=== PATIENT | female | born 1945 | race Caucasian/White ===

== ENCOUNTER 2016-10-26 09:39 | Observation (INO) | payer OTHER ==
[~2016-10-26] VITALS: Ht 167.6 cm; Wt 72.9 kg
[~2016-10-26 09:39] MED LIST: ASPIR 8181 M1 PO; ATIVAN0.5 MG PO; Benadryl PO; LIPITOR20 MG PO; METAMUCIL FIBE1 EACH PO; MULTIPLE VITAM1 EAC1 PO; PROTONIX40 MG PO; STOOL SOFTENER100 MG PO; predniSONE PO
[2016-10-26 10:15] LABS: HEMATOCRIT 35.1 % (36.0-46.0); MCH 30.9 PG (29.0-34.0); MCHC 32.8 G/DL (30.0-36.0); MCV 94.4 FL (83-99); PLATELET COUNT 170 K/uL (156-360); RBC DIS.WIDTH-CV 13.3 % (11.8-14.6); RBC DIS.WIDTH-SD 43.8 % (39-53); RED BLOOD COUNT 3.72 M/uL (3.80-5.20); WHITE BLOOD COUNT 4.9 K/uL (4.1-10.2)
[2016-10-26 10:22] LABS: CHLORIDE 109 mEq/L (99-109); POTASSIUM 3.8 mEq/L (3.7-5.4); SODIUM 141 mEq/L (136-147)
[2016-10-26 10:24] LABS: GLUCOSE 110 mg/dL (70-99)
[2016-10-26 10:25] LABS: ANION GAP 10 MEQ/L (2-14)
[2016-10-26 10:28] LABS: GFR ESTIMATE (CALCULATED) > 59 mL/min/
[2016-10-26 10:29] LABS: UREA NITROGEN (BUN) 20 mg/dL (9-23)
[2016-10-26] MEDS ORDERED: ASPIR 8181 M1 PO (11:24)
[2016-10-26] MEDS ORDERED: NOLVADEX20 MG PO (11:25)
[2016-10-26] MEDS ORDERED: EFUDEX 5% CREAM25 GM TP (11:26)
[2016-10-26 11:27] LABS: ADD MIUA? YES; BILIRUBIN NEGATIVE; BLOOD NEGATIVE; COLOR YELLOW ((YELLOW)); GLUCOSE (STRIP) NEGATIVE; KETONES NEGATIVE; LEUKOCYTES TRACE; NITRITE NEGATIVE; PROTEIN (STRIP) NEGATIVE; SPECIFIC GRAVITY 1.009 (1.000-1.030); UROBILINOGEN 0.2 MG/DL (0.2-1.0)
[2016-10-26] MEDS ORDERED: AZITHROMYCIN250 MG PO (11:27)
[2016-10-26 11:37] LABS: BACTERIA 1+; CASTS NONE SEEN /LPF; CRYSTALS NONE SEEN; EPITHELIAL CELLS 1+; MUCUS NONE SEEN; RED BLOOD CELLS NONE SEEN /HPF (0-5); UCUL ADDED? NO; WHITE BLOOD CELLS 0-5 /HPF (0-5)
[2016-10-26 13:52] VITALS: BP 141/72
[2016-10-26 16:45] VITALS: BP 110/53
[2016-10-26 21:15] VITALS: BP 126/61
[2016-10-27 00:35] VITALS: BP 109/56
[2016-10-27 05:03] VITALS: BP 109/56
[2016-10-27 05:12] VITALS: BP 114/70
[2016-10-27 07:15] LABS: HDL CHOLESTEROL 51 MG/DL (Desirable>=50); LDL CHOLESTEROL 53 mg/dL (Desirable<100); NON-HDL CHOLESTEROL 69 mg/dL (Desirable<160); TOTAL CHOLESTEROL 120 mg/dL (Desirable<200); TRIGLYCERIDES 82 MG/DL (Normal: <150)
[2016-10-27 08:00] VITALS: BP 113/54
[2016-10-27] MEDS ORDERED: ASPIR 8181 M1 PO (10:22)
[2016-10-28 07:05] LABS: Estimated Average Glucose 108 mg/dL (70-123); HEMOGLOBIN A1c (GLYCOHEMOGLOB) 5.4 % HGB (Below 5.7)
== END 2016-10-27 12:11 | disposition home or self-care (01) ==
LOC: EME 09:39 → EDOF 11:23 → 5WEST 13:39
PROVIDERS: Emergency Medicine; Hospitalist
DX: G45.9 Transient cerebral ischemic attack, unspecified (principal); K21.9 Gastro-esophageal reflux disease without esophagitis; E78.5 Hyperlipidemia, unspecified; Z85.3 Personal history of malignant neoplasm of breast; Z79.810 Long term (current) use of selective estrogen receptor modulators (SERMs); Z79.82 Long term (current) use of aspirin; Z82.3 Family history of stroke; Z83.3 Family history of diabetes mellitus; Z82.49 Family history of ischemic heart disease and other diseases of the circulatory system; Z83.2 Family history of diseases of the blood and blood-forming organs and certain disorders involving the immune mechanism; Z88.0 Allergy status to penicillin; Z88.1 Allergy status to other antibiotic agents; Z88.7 Allergy status to serum and vaccine; Z88.8 Allergy status to other drugs, medicaments and biological substances
CPT/HCPCS: 70450; 70551; 71020; 80048; 80061; 81003; 83036; 85027; 93005; 93880; 99281; 99285; G0378; J1650

== ENCOUNTER 2017-02-28 13:43 | Emergency (ER) | payer OTHER ==
[~2017-02-28] VITALS: Ht 167.6 cm; Wt 71.4 kg
[~2017-02-28 13:43] MED LIST changes: +AZITHROMYCIN250 MG PO; +EFUDEX 5% CREAM25 GM TP; +NOLVADEX20 MG PO
[2017-02-28 15:36] LABS: HEMATOCRIT 35.9 % (36.0-46.0); MCH 30.8 PG (29.0-34.0); MCHC 32.6 G/DL (30.0-36.0); MCV 94.5 FL (83-99); MEAN PLAT.VOLUME 10.4 uM^3 (9.5-12.4); PLATELET COUNT 181 K/uL (156-360); RBC DIS.WIDTH-CV 13.9 % (11.8-14.6); RBC DIS.WIDTH-SD 48.2 % (39-53); WHITE BLOOD COUNT 6.2 K/uL (4.1-10.2)
[2017-02-28 15:50] LABS: CHLORIDE 107 mEq/L (99-109); POTASSIUM 4.7 mEq/L (3.7-5.4); SODIUM 140 mEq/L (136-147)
[2017-02-28 15:52] LABS: GLUCOSE 95 mg/dL (70-99)
[2017-02-28 15:53] LABS: ANION GAP 7 MEQ/L (2-14)
[2017-02-28 15:54] LABS: TOTAL BILIRUBIN 0.3 mg/dL (0.0-1.0)
[2017-02-28 15:56] LABS: ALKALINE PHOSPHATASE 74 IU/L (3-129); GFR ESTIMATE (CALCULATED) 52 mL/min/
[2017-02-28 15:57] LABS: UREA NITROGEN (BUN) 17 mg/dL (9-23)
[2017-02-28 15:58] LABS: DIRECT BILIRUBIN 0.1 mg/dL (0.0-0.3)
[2017-02-28 17:06] LABS: ADD MIUA? YES; BILIRUBIN NEGATIVE; BLOOD NEGATIVE; COLOR YELLOW ((YELLOW)); GLUCOSE (STRIP) NEGATIVE; KETONES NEGATIVE; LEUKOCYTES MODERATE; NITRITE NEGATIVE; PROTEIN (STRIP) NEGATIVE; SPECIFIC GRAVITY 1.015 (1.000-1.030); UROBILINOGEN 0.2 MG/DL (0.2-1.0)
[2017-02-28 17:12] LABS: BACTERIA RARE /HPF; EPITHELIAL CELLS 1+ /HPF; MUCUS TRACE /LPF; UCUL ADDED? NO
[2017-02-28] MEDS ORDERED: MACROBID100 MG PO (17:52)
[2017-02-28 18:10] VITALS: BP 125/71
== END 2017-02-28 18:10 | disposition home or self-care (01) ==
LOC: EME 13:43
PROVIDERS: Physician Assistant
DX: R25.1 Tremor, unspecified (principal); N39.0 Urinary tract infection, site not specified; Z86.73 Personal history of transient ischemic attack (TIA), and cerebral infarction without residual deficits; K21.9 Gastro-esophageal reflux disease without esophagitis; Z90.10 Acquired absence of unspecified breast and nipple; Z88.7 Allergy status to serum and vaccine; Z88.0 Allergy status to penicillin; Z88.1 Allergy status to other antibiotic agents
CPT/HCPCS: 70450; 80048; 80076; 81003; 85027; 99281; 99285